=== PATIENT | female | born 2005 | race Caucasian/White ===

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

== ENCOUNTER 2023-05-12 21:08 | Emergency (ER) | payer BC ==
[~2023-05-12] VITALS: Ht 162.6 cm; Wt 73.4 kg
[2023-05-12 21:09] VITALS: TEMP 98.3; O2SAT 98
[2023-05-12 21:50] LABS: BASO # 0.1 10^3/uL (0.0-0.2); BASO % 0.6 % (0.0-1.0); EOS # 0.1 10^3/uL (0.0-0.5); EOS % 0.5 % (0.0-3.0); HEMATOCRIT 44.8 % (36.0-47.0); HEMOGLOBIN 15.1 g/dl (12.0-15.5); LYMPH # 2.3 10^3/uL (1.5-5.0); LYMPH % 18.5 % (24.0-44.0); MEAN CORPUSCULAR HEMOGLOBIN 30.4 pg (27.0-33.0); MEAN CORPUSCULAR HGB CONC 33.7 g/dl (32.0-36.5); MEAN CORPUSCULAR VOLUME 90.3 fl (80.0-96.0); MONO # 0.4 10^3/uL (0.0-0.8); MONO % 3.6 % (2.0-8.0); NEUTROPHILS # 9.3 10^3/uL (1.5-8.5); NEUTROPHILS % 76.5 % (36.0-66.0); PLATELET COUNT, AUTOMATED 359 10^3/uL (150-450); RED BLOOD COUNT 4.96 10^6/uL (4.00-5.40); WHITE BLOOD COUNT 12.2 10^3/uL (4.0-10.0)
[2023-05-12 22:15] LABS: CK-MB VALUE MASS < 1.0 NG/ML (<3.6)
[2023-05-12 22:17] LABS: BLOOD UREA NITROGEN 10 MG/DL (9-23); CALCIUM LEVEL 9.9 MG/DL (8.5-10.1); CARBON DIOXIDE LEVEL 26 MMOL/L (20-31); CHLORIDE LEVEL 102 MMOL/L (98-107); CREATININE FOR GFR 0.69 MG/DL (0.55-1.30); GLUCOSE, FASTING 103 MG/DL (60-100); POTASSIUM SERUM 4.1 MMOL/L (3.5-5.1); SODIUM LEVEL 139 MMOL/L (136-145)
[2023-05-12 22:19] LABS: CPK CREATINE PHOSPHOKINASE 81 U/L (34-145); HCG, SERUM QUALITATIVE NEGATIVE (NEGATIVE); MB/CK RELATIVE INDEX 1.23 (< OR =4)
[2023-05-13 00:43] LABS: MAGNESIUM LEVEL 1.6 MG/DL (1.8-2.4)
[2023-05-13] MEDS: LORazepam 1 MG TAB PO ONE (00:50)
[2023-05-13] MEDS: ACETAMINOPHEN TAB 650MG DOSE (2X325MG) PO ONE (00:51)
[2023-05-13 01:47] VITALS: BP 136/80
== END 2023-05-13 01:59 | disposition home or self-care (01) ==
LOC: M ED 21:08
DX: R55 Syncope and collapse (principal); F43.10 Post-traumatic stress disorder, unspecified; F41.9 Anxiety disorder, unspecified; F32.A Depression, unspecified; F12.10 Cannabis abuse, uncomplicated; J45.909 Unspecified asthma, uncomplicated; Z91.013 Allergy to seafood; Z91.010 Allergy to peanuts; Z91.011 Allergy to milk products; Z91.018 Allergy to other foods; Z91.02 Food additives allergy status; Z79.52 Long term (current) use of systemic steroids; Z79.83 Long term (current) use of bisphosphonates; Z79.899 Other long term (current) drug therapy

== ENCOUNTER 2024-03-26 12:28 | Emergency (ER) | payer BC ==
[~2024-03-26] VITALS: Ht 162.6 cm; Wt 74.8 kg
[~2024-03-26 12:28] MED LIST changes: +FLUO-290; +FLUO-365; -FLUO10CA18; -FLUO20CA22
[2024-03-26] MEDS: IPRATROPIUM 0.5MG/ALBUTEROL 2.5MG INH SOL UD 3ML (DUONEB) NEB SCH (12:45)
[2024-03-26] MEDS: ALBUTEROL SULFATE 2.5MG/0.5ML INH NEB SOLN NEB ONE (13:59)
[2024-03-26] MEDS: methylPREDNISolone 125MG 2ML VIAL IV ONE (14:05)
[2024-03-26 16:58] VITALS: BP 124/78; TEMP 99; O2SAT 99
== END 2024-03-26 17:03 | disposition home or self-care (01) ==
LOC: M ED 12:28
DX: J98.01 Acute bronchospasm (principal); J06.9 Acute upper respiratory infection, unspecified; Z91.048 Other nonmedicinal substance allergy status; Z79.51 Long term (current) use of inhaled steroids
CPT/HCPCS: 71046; 94640; 96374; 99284; J2919

== ENCOUNTER 2024-10-07 22:10 | Emergency (ER) | payer BC ==
[~2024-10-07] VITALS: Ht 165.1 cm; Wt 79.4 kg
[2024-10-08] MEDS: ACETAMINOPHEN 325 MG TAB PO ONE (03:32)
[2024-10-08 04:03] LABS: URINE PREG TEST NEGATIVE (NEGATIVE)
[2024-10-08 04:30] VITALS: BP 123/66; O2SAT 100
[2024-10-08] MEDS: KETOROLAC 30 MG/ML 1 ML VIAL IM ONE (04:34)
[2024-10-08] MEDS ORDERED: ACET-907 PO (04:35)
[2024-10-08] MEDS ORDERED: IBUP600T42 PO (04:36)
[2024-10-08 04:44] VITALS: TEMP 97.9
== END 2024-10-08 04:42 | disposition home or self-care (01) ==
LOC: M ED 22:10
DX: S63.501A Unspecified sprain of right wrist, initial encounter (principal); X50.0XXA Overexertion from strenuous movement or load, initial encounter; Y92.9 Unspecified place or not applicable; Y93.89 Activity, other specified; Y99.9 Unspecified external cause status; Z91.010 Allergy to peanuts; Z91.011 Allergy to milk products; Z91.018 Allergy to other foods; Z91.048 Other nonmedicinal substance allergy status; Z79.52 Long term (current) use of systemic steroids; Z79.899 Other long term (current) drug therapy; Z79.1 Long term (current) use of non-steroidal anti-inflammatories (NSAID)
CPT/HCPCS: 73110; 84703; 96372; 99284; J1885

== ENCOUNTER 2025-01-07 17:54 | Emergency (ER) | payer BC ==
[~2025-01-07] VITALS: Ht 162.6 cm; Wt 78.9 kg
[~2025-01-07 17:54] MED LIST changes: +ACET-907 PO; +IBUP600T42 PO
[2025-01-07] MEDS ORDERED: AMPH1CAP16 (18:32)
[2025-01-07] MEDS ORDERED: SERT150C (18:32)
[2025-01-07] MEDS: NS (Normal Saline) 0.9% 1,000 ML IV ONE (18:52)
[2025-01-07] MEDS: ONDANSETRON 4MG/2ML VIAL IV ONE (19:11)
[2025-01-07 19:13] LABS: BASO # 0.1 10^3/uL (0.0-0.2); BASO % 0.7 % (0.0-1.0); EOS # 0.1 10^3/uL (0.0-0.5); EOS % 0.9 % (0.0-3.0); LYMPH # 2.6 10^3/uL (1.5-5.0); LYMPH % 23.4 % (24.0-44.0); MONO # 0.5 10^3/uL (0.0-0.8); MONO % 4.0 % (2.0-8.0); NEUTROPHILS # 8.0 10^3/uL (1.5-8.5); NEUTROPHILS % 70.8 % (36.0-66.0); PLATELET COUNT, AUTOMATED 347 10^3/uL (150-450)
[2025-01-07 19:35] LABS: ALT/SGPT 15 U/L (7.0-40); AST/SGOT 20 U/L (<34); CALCIUM LEVEL 10.0 MG/DL (8.5-10.1); CARBON DIOXIDE LEVEL 27 MMOL/L (20-31); CHLORIDE LEVEL 106 MMOL/L (98-107); CREATININE FOR GFR 0.57 MG/DL (0.55-1.30); GLOMERULAR FILTRATION RATE > 90.0 (>60); POTASSIUM SERUM 4.2 MMOL/L (3.5-5.1); SODIUM LEVEL 144 MMOL/L (136-145)
[2025-01-07 19:41] LABS: HCG, SERUM QUALITATIVE NEGATIVE (NEGATIVE)
[2025-01-07] MEDS ORDERED: ONDA-282 PO (20:10)
[2025-01-07 20:18] VITALS: BP 121/85; TEMP 98.8; O2SAT 100
[2025-01-07] MEDS: ONDANSETRON 4MG ORAL DISINTEGRATING TAB PO ONE (20:18)
== END 2025-01-07 20:24 | disposition home or self-care (01) ==
LOC: M ED 17:54
DX: R11.2 Nausea with vomiting, unspecified (principal); F43.10 Post-traumatic stress disorder, unspecified; F41.9 Anxiety disorder, unspecified; F12.10 Cannabis abuse, uncomplicated; Z91.010 Allergy to peanuts; Z91.013 Allergy to seafood; Z91.02 Food additives allergy status; Z91.018 Allergy to other foods; Z91.0110 Allergy to milk products, unspecified; Z79.1 Long term (current) use of non-steroidal anti-inflammatories (NSAID); Z79.899 Other long term (current) drug therapy; Z79.52 Long term (current) use of systemic steroids
CPT/HCPCS: 80048; 80076; 83690; 84703; 85025; 96361; 96374; 99284; J2405